=== PATIENT | female | born 1980 | race Caucasian/White ===

== ENCOUNTER 2023-05-06 20:43 | Inpatient (IN) | payer MEDICAID ==
[~2023-05-06] VITALS: Ht 152.4 cm; Wt 49.9 kg
[2023-05-06 20:47] VITALS: BP_SYST 210; PULSE 111; RESP 18; TEMP 98.5; O2SAT 100
[2023-05-06 21:55] LABS: BASOPHILS # (AUTO) 0.1 K/uL (0.0-0.2); BASOPHILS % (AUTO) 0.6 % (0.0-2.0); EOSINOPHILS # (AUTO) 0.6 K/uL (0.0-0.4); EOSINOPHILS % (AUTO) 3.3 % (0.0-4.0); HEMATOCRIT 33.3 % (36-48); HEMOGLOBIN 11.2 g/dL (12.0-16.0); LYMPHOCYTES # (AUTO) 2.3 K/uL (1.0-5.5); LYMPHOCYTES % (AUTO) 12.3 % (20.5-51.5); MEAN CORPUSCULAR HEMOGLOBIN 33 pg (27-31); MEAN CORPUSCULAR HGB CONC 34 % (32-36); MEAN CORPUSCULAR VOLUME 97 fL (79.0-98.0); MONOCYTES # (AUTO) 1.1 K/uL (0.0-1.0); MONOCYTES % (AUTO) 6.1 % (1.7-9.3); NEUTROPHILS # (AUTO) 14.6 K/uL (1.8-7.7); NEUTROPHILS % (AUTO) 77.7 % (40.0-70.0); PLATELET COUNT (AUTO) 268 K/uL (130-430); RED BLOOD CELL COUNT(AUTO) 3.43 MIL/uL (4.2-6.2); RED CELL DISTRIBUTION WIDTH 14.8 % (9.0-15.0); WHITE BLOOD COUNT (AUTO) 18.8 K/uL (4.8-10.8)
[2023-05-06 22:00] LABS: BILIRUBIN,URINE NEGATIVE (NEGATIVE); BLOOD, URINE TRACE (NEGATIVE); CLARITY/URINE HAZY (CLEAR); COLOR,URINE YELLOW (YELLOW); GLUCOSE,URINE TRACE (NEGATIVE); KETONES,URINE NEGATIVE (NEGATIVE); LEUKOCYTE ESTERASE ,URINE 1+ (NEGATIVE); NITRITE, URINE NEGATIVE (NEGATIVE); PH,URINE 6.5 (5.0-8.0); PROTEIN URINE 2+ (NEGATIVE); UROBILINOGEN,URINE 0.2 (0.2-1.0)
[2023-05-06 22:03] LABS: ALANINE AMINOTRANSFERASE 36 U/L (12-78); ANION GAP 16 (5-15); ASPARTATE AMINOTRANSFERASE 24 U/L (10-37); BILIRUBIN,DIRECT 0.1 mg/dL (0.0-0.3); CALCIUM 8.3 mg/dL (8.4-11.0); CARBON DIOXIDE 19 mmol/L (23-29); CHLORIDE 104 mmol/L (98-107); GFR AFRICAN AMERICAN 7 mL/min (>90); GFR NON AFRICAN-AMERICAN 6 mL/min (>90); GLUCOSE 89 mg/dL (74-106); POTASSIUM 4.7 mmol/L (3.5-5.1); SODIUM SERUM 139 mmol/L (136-145); TOTAL BILIRUBIN 0.3 mg/dL (0.0-1.0); TOTAL PROTEIN, SERUM 6.9 g/dL (6.4-8.3); UREA NITROGEN, BLOOD 89 mg/dL (8-21)
[2023-05-06 22:05] LABS: CREATININE 7.75 mg/dL (0.55-1.30)
[2023-05-06 22:19] LABS: BACTERIA,URINE FEW /HPF (None Seen)
[2023-05-06] MEDS: hydrALAZINE HCL 20 MG/ML VIAL IVP ONE (22:27)
[2023-05-06] MEDS: FUROSEMIDE 40 MG/4 ML VIAL IVP ONE (22:28)
[2023-05-06] MEDS: ONDANSETRON HCL 4 MG/2 ML VIAL IVP ONE (22:40)
[2023-05-06] MEDS: MORPHINE 4 MG INJ. 4 MG/ML VIAL IVP ONE (22:41)
[2023-05-06] MEDS: cefTRIAXone 1 GM IVPB PREMIX 50 ML IV ONE (22:46)
[2023-05-06] MEDS ORDERED: INSULIN REGULAR, HUMAN 100 UNITS/ML, 3 ML VIAL (humuLIN R) SUBCUT PRN (23:30)
[2023-05-06] MEDS: PANTOPRAZOLE SODIUM 40 MG/VIAL (PROTONIX) IVP ONE (23:41)
[2023-05-06] MEDS ORDERED: ASPI-1393 PO (23:46)
[2023-05-06] MEDS ORDERED: NIFE90TA24 PO (23:46)
[2023-05-06] MEDS ORDERED: CARV25TA55 PO (23:46)
[2023-05-06] MEDS ORDERED: OMEP20CA15 PO (23:46)
[2023-05-06] MEDS ORDERED: VITA1CAP PO (23:46)
[2023-05-06] MEDS ORDERED: GABA300T25 PO (23:46)
[2023-05-06] MEDS ORDERED: FURO-150 PO (23:46)
[2023-05-06] MEDS ORDERED: ATOR40TA68 PO (23:46)
[2023-05-06] MEDS ORDERED: HYDR-4038 PO (23:46)
[2023-05-06] MEDS ORDERED: NITR0.4T47 SL (23:46)
[2023-05-06] MEDS ORDERED: METO25TA6 PO (23:46)
[2023-05-06] MEDS ORDERED: ISOS30TA85 PO (23:46)
[2023-05-06] MEDS ORDERED: FOLI0.4T6 PO (23:46)
[2023-05-07] MEDS: hydrALAZINE HCL 20 MG/ML VIAL IVP ONE (01:48)
[2023-05-07 06:58] LABS: BARBITURATE, URINE NEGATIVE (NEG <=200); BENZODIAZEPINE, URINE NEGATIVE (NEG <=150); CANNABINOID, URINE NEGATIVE (NEG <=50); COCAINE, URINE NEGATIVE (NEG <=150); METHAMPHETAMINES SCREEN,URINE POSITIVE (NEG <=500); OPIATE, URINE NEGATIVE (NEG <=100); PHENCYCLIDINE SCREEN,URINE NEGATIVE (NEG <=25); URINE AMPHETAMINE POSITIVE (NEG <=500); URINE METHADONE NEGATIVE (NEG <=200)
[2023-05-07 06:59] LABS: UR TRICYCLIC ANTIDEPRESSANTS NEGATIVE (NEG <=300); URINE OXYCODONE SCREEN POSITIVE (NEG <=100)
[2023-05-07 07:29] LABS: BASOPHILS # (AUTO) 0.1 K/uL (0.0-0.2); BASOPHILS % (AUTO) 0.8 % (0.0-2.0); EOSINOPHILS # (AUTO) 0.2 K/uL (0.0-0.4); HEMATOCRIT 31.9 % (36-48); HEMOGLOBIN 10.8 g/dL (12.0-16.0); LYMPHOCYTES # (AUTO) 1.7 K/uL (1.0-5.5); LYMPHOCYTES % (AUTO) 10.3 % (20.5-51.5); MEAN CORPUSCULAR HEMOGLOBIN 33 pg (27-31); MEAN CORPUSCULAR HGB CONC 34 % (32-36); MEAN CORPUSCULAR VOLUME 97 fL (79.0-98.0); MONOCYTES # (AUTO) 0.9 K/uL (0.0-1.0); MONOCYTES % (AUTO) 5.2 % (1.7-9.3); NEUTROPHILS # (AUTO) 13.9 K/uL (1.8-7.7); NEUTROPHILS % (AUTO) 82.7 % (40.0-70.0); PLATELET COUNT (AUTO) 277 K/uL (130-430); RED CELL DISTRIBUTION WIDTH 14.7 % (9.0-15.0); WHITE BLOOD COUNT (AUTO) 16.8 K/uL (4.8-10.8)
[2023-05-07 07:46] LABS: CALCIUM 8.5 mg/dL (8.4-11.0); CREATININE 7.42 mg/dL (0.55-1.30); POTASSIUM 4.9 mmol/L (3.5-5.1)
[2023-05-07] MEDS ORDERED: ONDANSETRON HCL 4 MG/2 ML VIAL IVP PRN (08:15)
[2023-05-07] MEDS ORDERED: DOCUSATE SODIUM 100 MG CAPSULE PO PRN (08:15)
[2023-05-07] MEDS ORDERED: MUPIROCIN 2% TOPICAL OINTMENT 22 GM NS PRN (08:15)
[2023-05-07] MEDS ORDERED: FUROSEMIDE 20 MG TABLET PO PRN (08:15)
[2023-05-07] MEDS ORDERED: ZOLPIDEM TARTRATE 5 MG TABLET PO PRN (08:15)
[2023-05-07] MEDS ORDERED: ACETAMINOPHEN 325 MG TABLET PO PRN (08:15)
[2023-05-07] MEDS ORDERED: MAGNESIUM SULFATE 50 ML IV PRN (08:15)
[2023-05-07] MEDS ORDERED: LORazepam 2 MG/ML VIAL IVP PRN (08:15)
[2023-05-07] MEDS ORDERED: POTASSIUM CHLORIDE 20 MEQ TABLET.ER PO PRN (08:15)
[2023-05-07] MEDS ORDERED: NIFE-34 PO (09:48)
[2023-05-07] MEDS ORDERED: ISOS60TA71 PO (09:48)
[2023-05-07] MEDS ORDERED: FURO40TA5 PO (09:48)
[2023-05-07] MEDS ORDERED: CALC-823 PO (09:48)
[2023-05-07] MEDS ORDERED: TICA90TA PO (09:48)
[2023-05-07] MEDS ORDERED: PRO40 PO (09:48)
[2023-05-07] MEDS ORDERED: FOLI-43 PO (09:48)
[2023-05-07] MEDS ORDERED: LIP40 PO (09:55)
[2023-05-07] MEDS ORDERED: FUROSEMIDE 40 MG TABLET PO PRN (10:00)
[2023-05-07] MEDS ORDERED: NEU300 PO (10:46)
[2023-05-07] MEDS: cefTRIAXone 1 GM in D5W 50 ML IV ONE (14:24)
[2023-05-07] MEDS: ASPIRIN 81 MG TABLET(ECOTRIN) PO ONE (14:25)
[2023-05-07] MEDS: VITAMIN B COMPLEX 1 CAP/TAB PO ONE (14:26)
[2023-05-07] MEDS: hydrALAZINE HCL 25 MG TABLET PO SCH (14:26)
[2023-05-07] MEDS: NIFEdipine 30 MG TAB.ER.24 PO ONE (14:27)
[2023-05-07] MEDS: ISOSORBIDE MONONITRATE 30 MG TAB.ER.24H PO ONE (14:28)
[2023-05-07] MEDS: ATORVASTATIN 20 MG TABLET PO ONE (14:28)
[2023-05-07] MEDS: HEPARIN SODIUM,PORCINE 5,000 UNITS/ML VIAL SUBCUT ONE (14:30)
[2023-05-07] MEDS ORDERED: METOPROLOL TARTRATE 50 MG TABLET PO ONE (16:45)
[2023-05-07 20:00] VITALS: BP_SYST 124; PULSE 107; RESP 16; TEMP 97; O2SAT 100
[2023-05-07] MEDS: METOPROLOL TARTRATE 50 MG TABLET PO SCH (20:35)
[2023-05-07] MEDS: HEPARIN SODIUM,PORCINE 5,000 UNITS/ML VIAL SUBCUT SCH (20:38)
[2023-05-07] MEDS: TICAGRELOR 90 MG TABLET PO SCH (20:43)
[2023-05-07 21:24] VITALS: BP_SYST 122; PULSE 101; RESP 16; TEMP 97.2
[2023-05-08 00:20] VITALS: BP_SYST 115; PULSE 79; RESP 18; TEMP 98.4; O2SAT 100
[2023-05-08] MEDS: HYDROcodone/ACETAMIN 5-325 MG TAB (NORCO/ VICODIN) PO PRN (04:19)
[2023-05-08 06:59] LABS: BASOPHILS # (AUTO) 0.1 K/uL (0.0-0.2); BASOPHILS % (AUTO) 0.6 % (0.0-2.0); EOSINOPHILS # (AUTO) 0.5 K/uL (0.0-0.4); EOSINOPHILS % (AUTO) 3.8 % (0.0-4.0); HEMATOCRIT 35.5 % (36-48); HEMOGLOBIN 12.1 g/dL (12.0-16.0); LYMPHOCYTES % (AUTO) 14.3 % (20.5-51.5); MEAN CORPUSCULAR HEMOGLOBIN 33 pg (27-31); MEAN CORPUSCULAR HGB CONC 34 % (32-36); MEAN CORPUSCULAR VOLUME 97 fL (79.0-98.0); MONOCYTES % (AUTO) 7.4 % (1.7-9.3); NEUTROPHILS # (AUTO) 10.1 K/uL (1.8-7.7); NEUTROPHILS % (AUTO) 73.9 % (40.0-70.0); PLATELET COUNT (AUTO) 343 K/uL (130-430); RED BLOOD CELL COUNT(AUTO) 3.65 MIL/uL (4.2-6.2); RED CELL DISTRIBUTION WIDTH 15.1 % (9.0-15.0); WHITE BLOOD COUNT (AUTO) 13.7 K/uL (4.8-10.8)
[2023-05-08 07:16] LABS: CALCIUM 8.4 mg/dL (8.4-11.0); CREATININE 5.8 mg/dL (0.55-1.30); POTASSIUM 4.9 mmol/L (3.5-5.1)
[2023-05-08 07:32] LABS: INR 0.9 (0.8-1.2); PROTHROMBIN TIME 9.7 SECS (9.5-12.5)
[2023-05-08 07:34] LABS: TOTAL BILIRUBIN 0.2 mg/dL (0.0-1.0); TOTAL PROTEIN, SERUM 7.2 g/dL (6.4-8.3)
[2023-05-08 07:35] LABS: THYROID STIMULATING HORMONE 1.24 uIu/mL (0.34-4.82)
[2023-05-08 08:10] VITALS: BP_SYST 131; PULSE 86; RESP 16; TEMP 98.4; O2SAT 100
[2023-05-08] MEDS ORDERED: LEVO-62 PO (08:31)
[2023-05-08] MEDS: ASPIRIN 81 MG TABLET(ECOTRIN) PO SCH (08:59)
[2023-05-08] MEDS: ATORVASTATIN 20 MG TABLET PO SCH (08:59)
[2023-05-08] MEDS: ISOSORBIDE MONONITRATE 30 MG TAB.ER.24H PO SCH (09:00)
[2023-05-08] MEDS: NIFEdipine 30 MG TAB.ER.24 PO SCH (09:00)
[2023-05-08] MEDS: VITAMIN B COMPLEX 1 CAP/TAB PO SCH (09:07)
[2023-05-08] MEDS: cefTRIAXone 1 GM in D5W 50 ML IV SCH (09:26)
[2023-05-08 12:00] VITALS: BP_SYST 124; PULSE 110; RESP 16; TEMP 97.7; O2SAT 97
[2023-05-08] MEDS: HEPARIN SODIUM,PORCINE 5,000 UNITS/ML VIAL MC ONE (12:31)
[2023-05-08 13:25] VITALS: BP_SYST 115; PULSE 88; RESP 16; TEMP 98.7; O2SAT 97
== END 2023-05-08 14:05 | disposition home or self-care (01) | DRG 720 ==
LOC: SED 20:43 → STU 23:48
PROVIDERS: ADMIT General Practice; ATTEND General Practice
PROC: 5A1D70Z Performance of Urinary Filtration, Intermittent, Less than 6 Hours Per Day (ICD-10-PCS; principal; 2023-05-08)
DX: A41.9 Sepsis, unspecified organism (principal); N17.0 Acute kidney failure with tubular necrosis; E44.1 Mild protein-calorie malnutrition; I16.1 Hypertensive emergency; I12.0 Hypertensive chronic kidney disease with stage 5 chronic kidney disease or end stage renal disease; E11.22 Type 2 diabetes mellitus with diabetic chronic kidney disease; N39.0 Urinary tract infection, site not specified; I25.10 Atherosclerotic heart disease of native coronary artery without angina pectoris; E78.5 Hyperlipidemia, unspecified; K21.9 Gastro-esophageal reflux disease without esophagitis; N18.6 End stage renal disease; F15.10 Other stimulant abuse, uncomplicated; Z79.82 Long term (current) use of aspirin; Z79.899 Other long term (current) drug therapy; I25.2 Old myocardial infarction; Z99.2 Dependence on renal dialysis; Z95.5 Presence of coronary angioplasty implant and graft; Z91.199 Patient's noncompliance with other medical treatment and regimen due to unspecified reason; Z91.158 Patient's noncompliance with renal dialysis for other reason; Z91.148 Patient's other noncompliance with medication regimen for other reason; Z87.891 Personal history of nicotine dependence; Z68.21 Body mass index [BMI] 21.0-21.9, adult
CPT/HCPCS: 36415; 71045; 76376; 80048; 80053; 80061; 80076; 80307; 81000; 81001; 81015; 82948; 83037; 83605; 83735; 83880; 84443; 84484; 85025; 85610; 87040; 87081; 87086; 90937; 93005; 93306; 99285; C9113; G0378; J0360; J0696; J1644; J1940; J2270; J2405; J7060

== ENCOUNTER 2023-11-14 23:30 | Inpatient (IN) | payer MEDICAID ==
[~2023-11-14] VITALS: Ht 152.4 cm; Wt 57.4 kg
[~2023-11-14 23:30] MED LIST: ASPI-1393 PO; CALC-823 PO; CARV25TA55 PO; FOLI-43 PO; FURO40TA5 PO; HYDR25TA86 PO; ISOS60TA71 PO; LEVO-62 PO; LIP40 PO; NEU300 PO; NIFE-34 PO; NITR0.4T47 SL; PRO40 PO; TICA90TA PO; VITA1CAP PO
[2023-11-14 23:47] VITALS: BP_SYST 203; PULSE 92; RESP 20; TEMP 98; O2SAT 98
[2023-11-15] VITALS (7 sets, daily range): BP systolic 140–173; PULSE 79–91; RESP 16–18; TEMP 97.1–98.7; O2SAT 95–100
[2023-11-15] MEDS: hydrALAZINE HCL 20 MG/ML VIAL IVP ONE (00:29)
[2023-11-15 01:12] LABS: RED BLOOD CELL COUNT(AUTO) 3.58 MIL/uL (4.2-6.2)
[2023-11-15 01:18] LABS: ALBUMIN 4.3 g/dL (3.4-4.8); BILIRUBIN,DIRECT 0.1 mg/dL (0.0-0.3); CALCIUM 8.8 mg/dL (8.4-11.0); POTASSIUM 5.3 mmol/L (3.5-5.1); TOTAL BILIRUBIN 0.2 mg/dL (0.0-1.0); TOTAL PROTEIN, SERUM 8.7 g/dL (6.4-8.3)
[2023-11-15 01:19] LABS: BASOPHILS # (AUTO) 0.1 K/uL (0.0-0.2); BASOPHILS % (AUTO) 1.2 % (0.0-2.0); EOSINOPHILS # (AUTO) 0.6 K/uL (0.0-0.4); EOSINOPHILS % (AUTO) 8.5 % (0.0-4.0); HEMATOCRIT 34.9 % (36-48); LYMPHOCYTES # (AUTO) 1.4 K/uL (1.0-5.5); LYMPHOCYTES % (AUTO) 20.5 % (20.5-51.5); MEAN CORPUSCULAR HEMOGLOBIN 34 pg (27-31); MEAN CORPUSCULAR HGB CONC 34 % (32-36); MEAN CORPUSCULAR VOLUME 98 fL (79.0-98.0); MONOCYTES # (AUTO) 0.3 K/uL (0.0-1.0); MONOCYTES % (AUTO) 4.5 % (1.7-9.3); NEUTROPHILS # (AUTO) 4.6 K/uL (1.8-7.7); NEUTROPHILS % (AUTO) 65.3 % (40.0-70.0); PLATELET COUNT (AUTO) 365 K/uL (130-430); WHITE BLOOD COUNT (AUTO) 7.1 K/uL (4.8-10.8)
[2023-11-15 01:20] LABS: CREATININE 9.73 mg/dL (0.55-1.30)
[2023-11-15] MEDS: ONDANSETRON HCL 4 MG/2 ML VIAL IVP ONE (01:24)
[2023-11-15] MEDS: MORPHINE 2 MG/ML INJ. SYRINGE IVP ONE (01:24)
[2023-11-15] MEDS ORDERED: KETOROLAC TROMETHAMINE 30 MG VIAL IM ONE (02:00)
[2023-11-15] MEDS: LABETALOL HCL 20 MG/4 ML CARTRIDGE IVP ONE (02:48)
[2023-11-15] MEDS ORDERED: ONDANSETRON HCL 4 MG/2 ML VIAL IVP PRN (08:00)
[2023-11-15] MEDS ORDERED: NALOXONE HCL 0.4 MG/ML AMP (NARCAN) IVP PRN ×2 (08:00)
[2023-11-15] MEDS ORDERED: NITROGLYCERIN 0.4 MG TAB.SUBL SL PRN (08:00)
[2023-11-15] MEDS: D5/0.45 NS 1,000 ML IV SCH (08:00)
[2023-11-15] MEDS ORDERED: ACETAMINOPHEN 325 MG TABLET PO PRN ×2 (08:00→08:45)
[2023-11-15] MEDS: CALCIUM CARBONATE/VITAMIN D3 1 TAB TABLET PO SCH (09:19)
[2023-11-15] MEDS: CARVEDILOL 25 MG TABLET (COREG) PO SCH (09:21)
[2023-11-15] MEDS: FOLIC ACID 1 MG TABLET PO SCH (09:21)
[2023-11-15] MEDS: HYDROcodone/ACETAMIN 10-325 MG TAB PO PRN (09:23)
[2023-11-15] MEDS: NIFEdipine 30 MG TAB.ER.24 PO SCH (09:24)
[2023-11-15] MEDS: PANTOPRAZOLE SODIUM 40 MG TAB PO SCH (09:26)
[2023-11-15] MEDS: ISOSORBIDE MONONITRATE 30 MG TAB.ER.24H PO SCH (09:26)
[2023-11-15] MEDS: levoFLOXacin 500 MG TABLET PO SCH (09:27)
[2023-11-15] MEDS: GABAPENTIN 300 MG CAPSULE PO SCH (09:28)
[2023-11-15] MEDS: ASPIRIN 81 MG TABLET(ECOTRIN) PO SCH (09:28)
[2023-11-15] MEDS: hydrALAZINE HCL 25 MG TABLET PO SCH (09:29)
[2023-11-15] MEDS: VITAMIN B COMPLEX 1 CAP/TAB PO SCH (09:30)
[2023-11-15 11:05] LABS: BASOPHILS # (AUTO) 0.1 K/uL (0.0-0.2); BASOPHILS % (AUTO) 1.3 % (0.0-2.0); EOSINOPHILS # (AUTO) 0.8 K/uL (0.0-0.4); EOSINOPHILS % (AUTO) 10.2 % (0.0-4.0); HEMATOCRIT 32.5 % (36-48); HEMOGLOBIN 10.7 g/dL (12.0-16.0); LYMPHOCYTES # (AUTO) 1.7 K/uL (1.0-5.5); LYMPHOCYTES % (AUTO) 22.4 % (20.5-51.5); MEAN CORPUSCULAR HEMOGLOBIN 33 pg (27-31); MEAN CORPUSCULAR HGB CONC 33 % (32-36); MEAN CORPUSCULAR VOLUME 99 fL (79.0-98.0); MONOCYTES # (AUTO) 0.5 K/uL (0.0-1.0); MONOCYTES % (AUTO) 6.6 % (1.7-9.3); NEUTROPHILS # (AUTO) 4.6 K/uL (1.8-7.7); NEUTROPHILS % (AUTO) 59.5 % (40.0-70.0); PLATELET COUNT (AUTO) 354 K/uL (130-430); RED BLOOD CELL COUNT(AUTO) 3.29 MIL/uL (4.2-6.2); RED CELL DISTRIBUTION WIDTH 14.9 % (9.0-15.0); WHITE BLOOD COUNT (AUTO) 7.8 K/uL (4.8-10.8)
[2023-11-15 11:23] LABS: ALBUMIN 3.5 g/dL (3.4-4.8); CALCIUM 8.3 mg/dL (8.4-11.0); TOTAL BILIRUBIN 0.3 mg/dL (0.0-1.0); TOTAL PROTEIN, SERUM 7.2 g/dL (6.4-8.3)
[2023-11-15 11:28] LABS: CREATININE 9.22 mg/dL (0.55-1.30)
[2023-11-15] MEDS: TICAGRELOR 90 MG TABLET PO SCH (12:25)
[2023-11-15] MEDS: ATORVASTATIN 20 MG TABLET PO SCH (21:17)
[2023-11-16 00:50] VITALS: BP_SYST 121; PULSE 83; RESP 18; TEMP 98.4; O2SAT 100
[2023-11-16 02:43] LABS: HCG,QUAL RESULT NEGATIVE (NEGATIVE)
[2023-11-16 03:02] LABS: METHAMPHETAMINES SCREEN,URINE POSITIVE (NEG <=500); URINE AMPHETAMINE POSITIVE (NEG <=500)
[2023-11-16 03:03] LABS: BARBITURATE, URINE NEGATIVE (NEG <=200); BENZODIAZEPINE, URINE NEGATIVE (NEG <=150); CANNABINOID, URINE NEGATIVE (NEG <=50); COCAINE, URINE NEGATIVE (NEG <=150); OPIATE, URINE POSITIVE (NEG <=100); PHENCYCLIDINE SCREEN,URINE NEGATIVE (NEG <=25); UR TRICYCLIC ANTIDEPRESSANTS NEGATIVE (NEG <=300); URINE METHADONE NEGATIVE (NEG <=200); URINE OXYCODONE SCREEN NEGATIVE (NEG <=100)
[2023-11-16] MEDS: fentaNYL CITRATE/PF 100 MCG/2 ML AMP ONE (07:11)
[2023-11-16] MEDS: MIDAZOLAM HCL 5 MG/5 ML VIAL ONE (07:11)
[2023-11-16 07:56] LABS: ALBUMIN 3.2 g/dL (3.4-4.8); PHOSPHORUS 6.6 mg/dL (2.7-4.5); TOTAL BILIRUBIN 0.3 mg/dL (0.0-1.0); TOTAL PROTEIN, SERUM 6.5 g/dL (6.4-8.3)
[2023-11-16 08:04] LABS: PROTHROMBIN TIME 10.5 SECS (9.5-12.5)
[2023-11-16 08:30] VITALS: BP_SYST 124; PULSE 76; RESP 16; TEMP 98.4; O2SAT 99
[2023-11-16 08:39] LABS: BASOPHILS # (AUTO) 0.1 K/uL (0.0-0.2); EOSINOPHILS # (AUTO) 0.8 K/uL (0.0-0.4); EOSINOPHILS % (AUTO) 11.8 % (0.0-4.0); HEMATOCRIT 28.9 % (36-48); LYMPHOCYTES # (AUTO) 1.5 K/uL (1.0-5.5); LYMPHOCYTES % (AUTO) 22.3 % (20.5-51.5); MEAN CORPUSCULAR HEMOGLOBIN 35 pg (27-31); MEAN CORPUSCULAR HGB CONC 35 % (32-36); MEAN CORPUSCULAR VOLUME 100 fL (79.0-98.0); MONOCYTES # (AUTO) 0.5 K/uL (0.0-1.0); MONOCYTES % (AUTO) 6.9 % (1.7-9.3); NEUTROPHILS # (AUTO) 3.8 K/uL (1.8-7.7); PLATELET COUNT (AUTO) 332 K/uL (130-430); RED BLOOD CELL COUNT(AUTO) 2.89 MIL/uL (4.2-6.2); RED CELL DISTRIBUTION WIDTH 14.8 % (9.0-15.0); WHITE BLOOD COUNT (AUTO) 6.6 K/uL (4.8-10.8)
[2023-11-16 09:01] LABS: CREATININE 9.26 mg/dL (0.55-1.30); POTASSIUM 6.5 mmol/L (3.5-5.1)
[2023-11-16 11:30] VITALS: BP_SYST 123; PULSE 71; RESP 16; TEMP 97
[2023-11-16 14:20] VITALS: BP_SYST 125; PULSE 75; RESP 18; TEMP 98.4; O2SAT 98
[2023-11-16 21:10] VITALS: BP_SYST 135; PULSE 76; RESP 18; TEMP 98.2; O2SAT 100
[2023-11-16] MEDS: MORPHINE 2 MG/ML INJ. SYRINGE IVP ONE (23:39)
[2023-11-16] MEDS: HEPARIN SODIUM, PORCINE 10,000 UNITS/ 10 ML VIAL MC ONE (23:45)
[2023-11-17 01:24] VITALS: BP_SYST 101; PULSE 70; RESP 18; TEMP 98.2; O2SAT 98
[2023-11-17] MEDS: HEPARIN SODIUM,PORCINE 5,000 UNITS/ML VIAL ONE (01:34)
[2023-11-17 06:07] LABS: HEPATITIS A AB, IgM Negative (Negative); HEPATITIS B CORE AB, IgM Negative (Negative); HEPATITIS B SURFACE AG Negative (Negative); HEPATITIS C VIRUS AB Non Reactive (Non Reactive)
[2023-11-17 07:05] LABS: BASOPHILS % (AUTO) 0.5 % (0.0-2.0); EOSINOPHILS # (AUTO) 0.4 K/uL (0.0-0.4); EOSINOPHILS % (AUTO) 3.8 % (0.0-4.0); HEMATOCRIT 26.4 % (36-48); HEMOGLOBIN 9.3 g/dL (12.0-16.0); LYMPHOCYTES % (AUTO) 11.1 % (20.5-51.5); MEAN CORPUSCULAR HEMOGLOBIN 35 pg (27-31); MEAN CORPUSCULAR HGB CONC 35 % (32-36); MEAN CORPUSCULAR VOLUME 99 fL (79.0-98.0); MONOCYTES # (AUTO) 0.6 K/uL (0.0-1.0); MONOCYTES % (AUTO) 6.6 % (1.7-9.3); NEUTROPHILS # (AUTO) 7.2 K/uL (1.8-7.7); PLATELET COUNT (AUTO) 274 K/uL (130-430); RED BLOOD CELL COUNT(AUTO) 2.66 MIL/uL (4.2-6.2); RED CELL DISTRIBUTION WIDTH 14.5 % (9.0-15.0); WHITE BLOOD COUNT (AUTO) 9.2 K/uL (4.8-10.8)
[2023-11-17 07:17] LABS: ALBUMIN 3.1 g/dL (3.4-4.8); PHOSPHORUS 4.1 mg/dL (2.7-4.5); TOTAL BILIRUBIN 0.3 mg/dL (0.0-1.0); TOTAL PROTEIN, SERUM 6.3 g/dL (6.4-8.3)
[2023-11-17 08:00] VITALS: BP_SYST 141; PULSE 90; RESP 16; TEMP 99; O2SAT 96; O2SAT 99
[2023-11-17 08:06] LABS: GAMMA GLUTAMYL TRANSFERASE 19 IU/L (0-60)
[2023-11-17 08:30] LABS: POTASSIUM 2.9 mmol/L (3.5-5.1)
[2023-11-17 12:00] VITALS: BP_SYST 128; PULSE 88; RESP 18; TEMP 98.9; O2SAT 99
[2023-11-17] MEDS: METOCLOPRAMIDE HCL 10 MG/2 ML VIAL IVP SCH (12:20)
[2023-11-17 16:00] VITALS: BP_SYST 91; PULSE 89; RESP 16; TEMP 98.4; O2SAT 98
[2023-11-17] MEDS: HYDROcodone/ACETAMIN 5-325 MG TAB (NORCO/ VICODIN) PO PRN (17:55)
[2023-11-17 20:04] VITALS: BP_SYST 113; RESP 18; TEMP 97.5; O2SAT 97
[2023-11-17] MEDS: LORazepam 2 MG/ML VIAL IVP PRN (21:39)
[2023-11-18] VITALS (7 sets, daily range): BP systolic 116–152; PULSE 61–98; RESP 16–19; TEMP 97.4–98.1; O2SAT 97–98
[2023-11-18 06:59] LABS: CALCIUM 7.8 mg/dL (8.4-11.0); CREATININE 6.13 mg/dL (0.55-1.30); PHOSPHORUS 6.8 mg/dL (2.7-4.5)
[2023-11-18 07:27] LABS: BASOPHILS % (AUTO) 0.5 % (0.0-2.0); EOSINOPHILS # (AUTO) 0.6 K/uL (0.0-0.4); EOSINOPHILS % (AUTO) 8.5 % (0.0-4.0); HEMATOCRIT 27.2 % (36-48); LYMPHOCYTES # (AUTO) 1.7 K/uL (1.0-5.5); LYMPHOCYTES % (AUTO) 24.2 % (20.5-51.5); MEAN CORPUSCULAR HEMOGLOBIN 33 pg (27-31); MEAN CORPUSCULAR HGB CONC 33 % (32-36); MEAN CORPUSCULAR VOLUME 99 fL (79.0-98.0); MONOCYTES # (AUTO) 0.6 K/uL (0.0-1.0); MONOCYTES % (AUTO) 8.4 % (1.7-9.3); NEUTROPHILS # (AUTO) 4.2 K/uL (1.8-7.7); NEUTROPHILS % (AUTO) 58.4 % (40.0-70.0); PLATELET COUNT (AUTO) 259 K/uL (130-430); RED BLOOD CELL COUNT(AUTO) 2.75 MIL/uL (4.2-6.2); RED CELL DISTRIBUTION WIDTH 14.5 % (9.0-15.0); WHITE BLOOD COUNT (AUTO) 7.1 K/uL (4.8-10.8)
[2023-11-18] MEDS: HEPARIN SODIUM, PORCINE 10,000 UNITS/ 10 ML VIAL MC ONE (13:20)
[2023-11-18] MEDS ORDERED: METO-290 PO (17:29)
[2023-11-19] VITALS: BP_SYST 138; PULSE 88; RESP 18; TEMP 97.9; O2SAT 97
[2023-11-19 05:14] LABS: BASOPHILS # (AUTO) 0.1 K/uL (0.0-0.2); BASOPHILS % (AUTO) 0.7 % (0.0-2.0); EOSINOPHILS # (AUTO) 0.8 K/uL (0.0-0.4); EOSINOPHILS % (AUTO) 9.9 % (0.0-4.0); HEMATOCRIT 26.1 % (36-48); HEMOGLOBIN 8.7 g/dL (12.0-16.0); LYMPHOCYTES # (AUTO) 1.5 K/uL (1.0-5.5); LYMPHOCYTES % (AUTO) 18.1 % (20.5-51.5); MEAN CORPUSCULAR HEMOGLOBIN 33 pg (27-31); MEAN CORPUSCULAR HGB CONC 33 % (32-36); MEAN CORPUSCULAR VOLUME 98 fL (79.0-98.0); MONOCYTES # (AUTO) 0.6 K/uL (0.0-1.0); MONOCYTES % (AUTO) 7.2 % (1.7-9.3); NEUTROPHILS # (AUTO) 5.4 K/uL (1.8-7.7); NEUTROPHILS % (AUTO) 64.1 % (40.0-70.0); PLATELET COUNT (AUTO) 246 K/uL (130-430); RED BLOOD CELL COUNT(AUTO) 2.68 MIL/uL (4.2-6.2); RED CELL DISTRIBUTION WIDTH 14.8 % (9.0-15.0); WHITE BLOOD COUNT (AUTO) 8.4 K/uL (4.8-10.8)
[2023-11-19 05:57] LABS: ALBUMIN 2.8 g/dL (3.4-4.8); CALCIUM 8.1 mg/dL (8.4-11.0); CREATININE 4.27 mg/dL (0.55-1.30); PHOSPHORUS 4.1 mg/dL (2.7-4.5); POTASSIUM 4.5 mmol/L (3.5-5.1); TOTAL BILIRUBIN 0.3 mg/dL (0.0-1.0)
[2023-11-19 08:00] VITALS: BP_SYST 132; PULSE 89; RESP 18; TEMP 98.4; O2SAT 100
[2023-11-19 12:45] VITALS: BP_SYST 135; PULSE 87; RESP 17; TEMP 98.1; O2SAT 98
[2023-11-19 16:28] VITALS: BP_SYST 133; PULSE 88; RESP 18; TEMP 98.2; O2SAT 99
[2023-11-19 18:55] VITALS: BP_SYST 133; PULSE 88; RESP 18; TEMP 98.2; O2SAT 18
== END 2023-11-19 20:00 | disposition home or self-care (01) | DRG 254 ==
LOC: SED 23:38 → STU 11-15 02:12 → SMU 11-18 17:46
PROVIDERS: ADMIT Preventive Medicine Preventive Medicine/Occupational Environmental Medicine; ATTEND Preventive Medicine Preventive Medicine/Occupational Environmental Medicine
PROC: 0DB68ZX Excision of Stomach, Via Natural or Artificial Opening Endoscopic, Diagnostic (ICD-10-PCS; 2023-11-16)
PROC: 5A1D70Z Performance of Urinary Filtration, Intermittent, Less than 6 Hours Per Day (ICD-10-PCS; 2023-11-16)
PROC: 0DB98ZX Excision of Duodenum, Via Natural or Artificial Opening Endoscopic, Diagnostic (ICD-10-PCS; principal; 2023-11-16 09:15)
PROC: 5A1D70Z Performance of Urinary Filtration, Intermittent, Less than 6 Hours Per Day (ICD-10-PCS; 2023-11-18)
DX: K31.84 Gastroparesis (principal); E44.0 Moderate protein-calorie malnutrition; N17.9 Acute kidney failure, unspecified; I12.0 Hypertensive chronic kidney disease with stage 5 chronic kidney disease or end stage renal disease; E83.51 Hypocalcemia; E83.41 Hypermagnesemia; D63.1 Anemia in chronic kidney disease; E83.39 Other disorders of phosphorus metabolism; N18.6 End stage renal disease; K29.70 Gastritis, unspecified, without bleeding; I16.0 Hypertensive urgency; E87.1 Hypo-osmolality and hyponatremia; E87.5 Hyperkalemia; E78.5 Hyperlipidemia, unspecified; E88.09 Other disorders of plasma-protein metabolism, not elsewhere classified; K44.9 Diaphragmatic hernia without obstruction or gangrene; K31.7 Polyp of stomach and duodenum; K21.9 Gastro-esophageal reflux disease without esophagitis; F15.10 Other stimulant abuse, uncomplicated; I25.10 Atherosclerotic heart disease of native coronary artery without angina pectoris; I25.2 Old myocardial infarction; Z98.891 History of uterine scar from previous surgery; Z99.2 Dependence on renal dialysis; Z68.24 Body mass index [BMI] 24.0-24.9, adult; Z79.82 Long term (current) use of aspirin
CPT/HCPCS: 36415; 43239; 76700; 78264; 80048; 80053; 80074; 80076; 80307; 83516; 83690; 83735; 84100; 84484; 84703; 85025; 85610; 85730; 87081; 88305; 88312; 88313; 90935; 90937; 93005; 96374; 99285; A9541; G0378; J0360; J1644; J2060; J2250; J2270; J2405; J2765; J3010